=== PATIENT | male | born 1950 | race Caucasian/White ===

== ENCOUNTER 2023-08-06 08:49 | Outpatient (CLI) | payer MEDICARE, BC ==
[2023-08-06 11:19] LABS: Hematocrit 44.9 % (38.8-50.0); Hemoglobin 15.5 g/dL (13.5-17.5); Mean Corpuscular HGB CONC 34.5 g/dL (32.0-36.0); Mean Corpuscular Hemoglobin 33.8 pg (27.0-33.0); Mean Corpuscular Volume 97.8 fl (81.2-95.1); Mean Platelet Volume 10.2 fl (7.4-10.4); Platelet Count 326 10x3/uL (150-450); RBC Distribution Width 12.3 % (11.5-14.5); Red Blood Cell (RBC) Count 4.59 10x6/uL (4.32-5.72); White Blood Cell (WBC) Count 7.7 10x3/uL (3.5-10.5)
[2023-08-06 12:21] LABS: Anion Gap 15 mmol/L (10-20); BUN (Urea Nitrogen) 13 mg/dL (8.4-25.7); Calc. Creatinine Clearance 0 mL/min (70-130); Calcium 9.3 mg/dL (7.8-10.44); Carbon Dioxide 28 mmol/L (23-31); Chloride 98 mmol/L (98-107); Estimated GFR 83; Glucose 100 mg/dL (83-110); Potassium 3.7 mmol/L (3.5-5.1); Sodium 137 mmol/L (136-145)
== END 2023-08-06 08:50 | disposition home or self-care (01) ==
LOC: CSHLAB 08:49
PROVIDERS: ATTEND Surgery
DX: Z01.818 Encounter for other preprocedural examination (principal); K80.20 Calculus of gallbladder without cholecystitis without obstruction
CPT/HCPCS: 80048; 85027; 93005; 93010

== ENCOUNTER 2023-08-07 05:58 | Day surgery (SDC) | payer MEDICARE ==
[2023-08-06 09:43] VITALS: BMI 31.6
[2023-08-07] MEDS ORDERED: Indocyanine Green 25 MG/10 ML VIAL ONE (06:19)
[2023-08-07] MEDS ORDERED: EPINEPHrine 1 MG/ML VIAL ONE (06:39)
[2023-08-07] MEDS ORDERED: Bupivacaine PF 0.5% 30 ML VIAL ONE (06:39)
[2023-08-07] MEDS ORDERED: PROPOFOL 20 ML ONE ×2 (06:58→07:58)
[2023-08-07] MEDS ORDERED: Fentanyl 250 MCG/5 ML VIAL ONE (06:58)
[2023-08-07] MEDS ORDERED: Rocuronium Bromide 10 MG/ML (10ML VIAL) ONE (06:58)
[2023-08-07] MEDS ORDERED: Lidocaine 2% PF 5 ML VIAL ONE (06:58)
[2023-08-07] MEDS ORDERED: Midazolam HCl 2 mg/2 ml Vial ONE (06:58)
[2023-08-07] MEDS ORDERED: CEFAZOLIN 2 GM VIAL ONE (07:15)
[2023-08-07] MEDS ORDERED: Atropine Sulfate 0.4 mg/1 ml Vial ONE (07:42)
[2023-08-07] MEDS ORDERED: SUGAMMADEX SODIUM 200 MG/2 ML VIAL ONE (08:13)
[2023-08-07] MEDS ORDERED: HYDROcodone/Acetaminophen 5/325 mg Tablet PO PRN (08:39)
== END 2023-08-07 09:40 | disposition home or self-care (01) ==
LOC: CSHSDC 05:58
PROVIDERS: ATTEND Surgery
PROC: 0FT44ZZ Resection of Gallbladder, Percutaneous Endoscopic Approach (ICD-10-PCS; principal; 2023-08-07)
DX: K80.10 Calculus of gallbladder with chronic cholecystitis without obstruction (principal); I10 Essential (primary) hypertension; E78.5 Hyperlipidemia, unspecified; Z87.891 Personal history of nicotine dependence; Z79.82 Long term (current) use of aspirin; Z79.899 Other long term (current) drug therapy
CPT/HCPCS: 47562; J0171; 88304; J0461; J0665; J2001; J2250; J2704; J3010